=== PATIENT | male | born 1975 | race Two or more races ===

== ENCOUNTER 2018-11-19 21:04 | Emergency (ER) | payer OTHER ==
[~2018-11-19] VITALS: Ht 167.6 cm; Wt 72.6 kg
[2018-11-19 21:59] LABS: Urine Bacteria NONE SEEN /hpf (None Seen); Urine Blood Negative /uL (Negative); Urine Mucus FEW (None Seen); Urine Specific Gravity 1.025 (1.001-1.035); Urine WBC 1 /hpf (0 - 3)
[2018-11-20 03:46] VITALS: BP 113/80
== END 2018-11-20 04:22 | disposition home or self-care (01) ==
LOC: ER 21:08
DX: K59.00 Constipation, unspecified (principal)
CPT/HCPCS: 74176; 81001